=== PATIENT | female | born 1995 | race Two or more races ===

== ENCOUNTER 2024-12-17 03:19 | Emergency (ER) | payer SELFPAY ==
[~2024-12-17] VITALS: Ht 157.5 cm; Wt 128.4 kg
[2024-12-17] MEDS: ACETAMINOPHEN 325 MG TAB PO ONE (03:45)
--- NOTE | 2024-12-17 03:58 | ED.PDOC ---
History of Present Illness HPI Comments 29 y/o F, with a history of seizures - 500mg Keppra BID, presents with significant other for c/o seizure episode, today. Patient reports on waking up from her sleep, with a headache, when she had a seizure from a standing position. Patient was assisted onto the ground by significant other, who was there to witnessed the seizure then. Patient, now, endorses on headache and dry tongue. Denies any injuries, dizziness, confusion, or other associated symptoms. 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 DRAPERY OPERATOR Hx Family History Family History: Unknown Social History Smoker: Non-Smoker Alcohol: Denies ETOH Use Drugs: Denies Drug Use Lives In: Home All Other Systems: Reviewed and Negative (Comprehensive systems review obtained and negative except for what is stated in the HPI.) Physical Exam General Appearance: No Apparent Distress, Normal HEENT: Normal ENT Inspection, Pharynx Normal, TMs Normal Neck: Full Range of Motion, Non-Tender, Normal, Normal Inspection Respiratory: Chest Non-Tender, Lungs Clear, No Accessory Muscle Use, No Respiratory Distress, Normal Breath Sounds Cardiovascular: No Edema, No JVD, No Murmur, No Gallop, Normal Peripheral Pulses, Regular Rate/Rhythm Breast Exam: Deferred Gastrointestinal: No Organomegaly, Non Tender, No Pulsatile Mass, Normal Bowel Sounds, Soft Genitalia: Deferred Pelvic: Deferred Rectal: Deferred Extremities: No calf tenderness, Normal capillary refill, Normal inspection, Normal range of motion, Non-tender, No pedal edema Musculoskeletal : Apperance: Normal Neurologic: Alert, housing management officer II-XII nml as Tested, No Motor Deficits, Normal Affect, Normal Mood, No Sensory Deficits Cerebellar Function: Normal Reflexes: Normal Skin: Dry, Normal Color, Warm Lymphatic: No Adenopathy Was a procedure done? Was a procedure done?: No Differential Dx Considerations may include: seizures, pseudoseizures, viral syndrome, among others X-Ray, Labs, Meds, VS Vital Signs Date Time Temp Pulse Resp B/P (MAP) Pulse Ox O2 Delivery O2 Flow Rate FiO2 12/17/24 05:27 98.6 91 16 118/87 (97) 97 98.6 12/17/24 05:20 20 99 Nasal Cannula* 2 28 12/17/24 03:25 98.7 97 18 118/82 (94) 90 98.7 Current Medications Medications (Trade) Dose Ordered Sig/Leobardo Route Start Time Stop Time Status Last Admin Sodium Chloride 1,000 ml @ 1,000 mls/hr Q1H ONCE IV 12/17/24 03:45 12/17/24 04:44 DC 12/17/24 05:24 Levetiracetam 200 ml @ 400 mls/hr ONCE ONCE IV 12/17/24 03:45 12/17/24 04:14 DC 12/17/24 05:25 Acetaminophen (Tylenol Tablet) 650 mg ONCE ONCE PO 12/17/24 03:45 12/17/24 03:46 DC 12/17/24 03:45 Ketorolac Tromethamine (Toradol Injection) 15 mg ONCE ONCE IV 12/17/24 03:45 12/17/24 03:46 DC 12/17/24 05:23 Albuterol (Ventolin Medneb) 5 mg ONCE ONCE NEB 12/17/24 05:15 12/17/24 05:16 DC 12/17/24 05:19 Ipratropium [place] (Atrovent Medneb) 0.5 mg ONCE ONCE NEB 12/17/24 05:15 12/17/24 05:16 DC 12/17/24 05:19 Time of 1ST Reevaluation: 04:00 Reevaluation 1ST: Unchanged Patient Education/Counseling: Diagnosis, Treatment Family Education/Counseling: Diagnosis, Treatment Additional Information Previous visits: n/a The following tests were ordered, and results were reviewed by me: n/a Additional Information was gathered from interviewing the following independent historians: significant other I reviewed and agreed with the following test results read by other providers: n/a I discussed treatment and results with medical personnel and: Patient, significant other Departure 1 Departure Time of Disposition: 05:29 (Patient with a breakthrough seizure however she has now returned to baseline. We will discharge patient home with outpatient follow up) Impression: Primary Impression: Breakthrough seizure Disposition: HOME / SELF CARE / HOMELESS Condition: Stable Additional Instructions: You had a breakthrough seizure today. It is important to take your seizure medication. You should stay well rested and well hydrated. You should follow up with your regular doctor within 1 week. If your symptoms worsen or you have any other concerns then please return to the emergency room. Discharged With: Self Critical Care Note Critical Care Time?: No Stability Stability form required: No Heart Score Heart Score: Heart Score Response (Comments) Value History N/A 0 EKG N/A 0 Age N/A 0 Risk Factors N/A 0 Troponin N/A 0 Total 0 I personally scribed for MYLA JANSEN MD ([email or web address]) on 12/17/24 at 03:58. Electronically submitted by Alfred Echeverria ([email or web address]). MYLA JANSEN MD Dec 17, 2024 03:58
[2024-12-17] MEDS: IPRATROPIUM BROM 0.5 MG/2.5ML INH SOL NEB ONE (05:19)
[2024-12-17] MEDS: ALBUTEROL SULF 2.5 MG/0.5ML(0.5%) NEB SOLN NEB ONE (05:19)
[2024-12-17] MEDS: KETOROLAC TROMETH 30 MG/ML 1ML VIAL IV ONE (05:23)
[2024-12-17] MEDS: SODIUM CHLORIDE 0.9% 1,000 ML IV ONE (05:24)
[2024-12-17] MEDS: levETIRAcetam 1000 mg/100ml 200 ML IV ONE (05:25)
[2024-12-17 05:27] VITALS: BP 118/87; PULSE 91; RESP 16; TEMP 98.6; O2SAT 96
--- NOTE | 2024-12-17 05:46 | DVH ---
CHEST RADIOGRAPH Indication: sob Technique: Single frontal view of the chest was obtained COMPARISON: None FINDINGS: Lines and Tubes: None Lungs: Diffuse increased interstitial prominence Pleura: No effusion. No pneumothorax. Cardiomediastinal contours: Unremarkable Bones: Unremarkable IMPRESSION: Viral pneumonia versus pulmonary vascular congestion
== END 2024-12-17 05:50 | disposition home or self-care (01) ==
LOC: ER 03:19
DX: G40.909 Epilepsy, unspecified, not intractable, without status epilepticus (principal); Z88.5 Allergy status to narcotic agent; Z79.899 Other long term (current) drug therapy
CPT/HCPCS: 71045; 94640; 96365; 96375; 99284; J1885; J1953; J7030

== ENCOUNTER 2024-12-25 21:23 | Emergency (ER) | payer SELFPAY ==
[~2024-12-25] VITALS: Ht 160 cm; Wt 125.5 kg
[2024-12-25 22:20] VITALS: TEMP 98.5
[2024-12-25 23:34] LABS: Urine Bacteria FEW /hpf (None Seen); Urine Blood Negative /uL (Negative); Urine Clarity Clear (Clear); Urine Color Colorless (Yellow); Urine Protein, UAD Negative (Negative); Urine Specific Gravity 1.005 (1.001-1.035); Urine Squamous Epithelial Cell FEW /hpf (<5); Urine Urobilinogen Normal (Negative); Urine WBC < 1 /HPF (0-5); Urine pH 6.5 (5.0-9.0)
[2024-12-25 23:51] LABS: Basophils # (auto) 0 10 ^3/uL (0-0.2); Basophils % (auto) 0.1 % (0.0-2.0); Eosinophils # (auto) 0 10 ^3/uL (0-0.8); Hematocrit 38.7 % (36.0-46.0); Hemoglobin 12.5 g/dL (12.2-16.2); Lymphocytes # (auto) 1.3 10 ^3/uL (0.4-5.4); Lymphocytes % (auto) 7.2 % (10.0-50.0); Mean Corpuscular Hemoglobin 25.5 pg (28.0-32.0); Mean Corpuscular Hgb Conc. 32.4 g/dL (32.0-36.0); Mean Corpuscular Volume 78.6 fL (80.0-100.0); Monocytes # (auto) 0.7 10 ^3/uL (0-1.3); Monocytes % (auto) 3.8 % (0.0-12.0); Neutrophils # (auto) 16.7 10 ^3/uL (1.6-8.6); Neutrophils % (auto) 88.9 % (37.0-80.0); Platelet Count (auto) 393 10^3/uL (140-450); Red Blood Cells 4.93 10^6/uL (4.0-5.20); Red Cell Distribution Width 17.3 % (11.8-14.3); White Blood Cell 18.8 10^3/uL (4.4-10.8)
[2024-12-25] MEDS: levETIRAcetam 1000 mg/100ml 100 ML IV ONE (23:59)
[2024-12-26 00:15] LABS: Alanine Aminotransferase 18 U/L (7-40); Albumin 4.7 g/dL (3.2-4.8); Alkaline Phosphatase 70 U/L (46-116); Anion Gap 10 (5-15); BUN/Creatinine Ratio 7.5 (10.0-20.0); Calcium 9.1 mg/dL (8.7-10.4); Carbon Dioxide 21 mmol/L (20-31); Lipase 33 U/L (12-53); Sodium 140 mmol/L (136-145); Total Protein 7.1 g/dL (5.7-8.2)
[2024-12-26 00:16] LABS: Bilirubin, Total 0.4 mg/dL (0.2-1.0)
[2024-12-26 00:18] LABS: Aspartate Aminotransferase 10 U/L (13-40); Blood Urea Nitrogen 6 mg/dL (9-23); Chloride 109 mmol/L (98-107); Glucose 127 mg/dL (74-106)
[2024-12-26] MEDS: PROCHLORPERAZINE EDISYLATE 5 MG/ML 2ML VIAL IV ONE (00:40)
--- NOTE | 2024-12-26 00:55 | ED.PDOC ---
History of Present Illness HPI Comments 29-year-old female complaining of nausea and vomiting which started at 5:30 a.m.. States she went to [facility] initially, states she was CT scans and lab works done told that the CT was negative but states they did nothing else for her so she was last. States she was concerned because she was not been able to keep down her Keppra for seizures. States she was seizure last week so she needs to keep taking it daily. Takes 1000 mg twice a day. 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 INFRASTRUCTURE ARCHITECT Hx Family History Family History: Unknown Social History Smoker: Non-Smoker Alcohol: Denies ETOH Use Drugs: Denies Drug Use Lives In: Home Constitutional: denies: chills, diaphoresis, fatigue, fever, malaise, sweats, weakness, others EENTM: denies: blurred vision, double vision, ear bleeding, ear discharge, ear drainage, ear pain, ear ringing, eye pain, eye redness, hearing loss, mouth pain, mouth swelling, nasal discharge, nose bleeding, nose congestion, nose pain, photophobia, tearing, throat pain, throat swelling, voice changes, others Respiratory: denies: cough, hemoptysis, orthopnea, SOB at rest, shortness of breath, SOB with excertion, stridor, wheezing, others Cardiovascular: denies: chest pain, dizzy spells, diaphoresis, Dyspnea on exertion, edema, irregular heart beat, left arm pain, lightheadedness, palpitations, PND, syncope, others Gastrointestinal: reports: nausea, vomiting; denies: abdomen distended, abdominal pain, blood streaked bowels, constipated, diarrhea, dysphagia, difficulty swallowing, hematemesis, melena, poor appetite, poor fluid intake, rectal bleeding, rectal pain, others Genitourinary: denies: abnormal vagina bleeding, burning, dyspareunia, dysuria, flank pain, frequency, hematuria, incontinence, pain, , vagina discharge, urgency, others Neurological: denies: dizziness, fainting, headache, left sided numbness, left sided weakness, numbness, paresthesia, pre-existing deficit, right sided numbness, right sided weakness, seizure, speech problems, tingling, tremors, weakness, others Musculoskeletal: denies: back pain, gout, joint pain, joint swelling, muscle pain, muscle stiffness, neck pain, others Integumetry: denies: bruises, change in color, change in hair/nails, dryness, laceration, lesions, lumps, rash, wounds, others Allergic/Immunocompromised: denies: Difficulty Healing, Frequent Infections, Hives, Itching, others Hematologic/Lymphatic: denies: anemia, blood clots, easy bleeding, easy bru ising, swollen glands, others Physical Exam General Appearance: No Apparent Distress, Normal HEENT: Normal ENT Inspection, Pharynx Normal, TMs Normal Neck: Full Range of Motion, Non-Tender, Normal, Normal Inspection Respiratory: Chest Non-Tender, Lungs Clear, No Accessory Muscle Use, No Respiratory Distress, Normal Breath Sounds Cardiovascular: No Edema, No JVD, No Murmur, No Gallop, Normal Peripheral Pulses, Regular Rate/Rhythm Breast Exam: Deferred Gastrointestinal: No Organomegaly, Non Tender, No Pulsatile Mass, Normal Bowel Sounds, Soft Genitalia: Deferred Pelvic: Deferred Rectal: Deferred Extremities: No calf tenderness, Normal capillary refill, Normal inspection, Normal range of motion, Non-tender, No pedal edema Musculoskeletal : Apperance: Normal Neurologic: Alert, plug paster II-XII nml as Tested, No Motor Deficits, Normal Affect, Normal Mood, No Sensory Deficits Cerebellar Function: Normal Reflexes: Normal Skin: Dry, Normal Color, Warm Lymphatic: No Adenopathy Was a procedure done? Was a procedure done?: No Differential Dx Considerations may include: Gastroenteritis, acute nausea, X-Ray, Labs, Meds, VS Vital Signs Date Time Temp Pulse Resp B/P (MAP) Pulse Ox O2 Delivery O2 Flow Rate FiO2 12/25/24 22:20 98.5 98 17 123/58 (79) 98 98.5 Lab Test 12/25/24 23:35 12/25/24 22:00 Range/Units White Blood Count 18.8 H 4.4-10.8 10^3/uL Red Blood Count 4.93 4.0-5.20 10^6/uL Hemoglobin 12.5 12.2-16.2 g/dL Hematocrit 38.7 36.0-46.0 % Mean Corpuscular Volume 78.6 L 80.0-100.0 fL Mean Corpuscular Hemoglobin 25.5 L 28.0-32.0 pg Mean Corpuscular Hemoglobin Concent 32.4 32.0-36.0 g/dL Red Cell Distribution Width 17.3 H 11.8-14.3 % Platelet Count 393 140-450 10^3/uL Mean Platelet Volume 8.1 6.9-10.8 fL Neutrophils (%) (Auto) 88.9 H 37.0-80.0 % Lymphocytes (%) (Auto) 7.2 L 10.0-50.0 % Monocytes (%) (Auto) 3.8 0.0-12.0 % Eosinophils (%) (Auto) 0.0 0.0-7.0 % Basophils (%) (Auto) 0.1 0.0-2.0 % Neutrophils # (Auto) 16.7 H 1.6-8.6 10 ^3/uL Lymphocytes # (Auto) 1.3 0.4-5.4 10 ^3/uL Monocytes # (Auto) 0.7 0-1.3 10 ^3/uL Eosinophils # (Auto) 0 0-0.8 10 ^3/uL Basophils # (Auto) 0 0-0.2 10 ^3/uL Nucleated Red Blood Cells 0.0 % Sodium Level 140 136-145 mmol/L Potassium Level 4.0 3.5-5.1 mmol/L Chloride Level 109 H 98-107 mmol/L Carbon Dioxide Level 21 20-31 mmol/L Anion Gap 10 5-15 Blood Urea Nitrogen 6 L 9-23 mg/dL Creatinine 0.80 0.550-1.02 mg/dL Glomerular Filtration Rate Calc 102 >90 mL/min BUN/Creatinine Ratio 7.5 L 10.0-20.0 Serum Glucose 127 H 74-106 mg/dL Calcium Level 9.1 8.7-10.4 mg/dL Total Bilirubin 0.4 0.2-1.0 mg/dL Aspartate Amino Transferase (AST) 10 L 13-40 U/L Alanine Aminotransferase (ALT) 18 7-40 U/L Alkaline Phosphatase 70 46-116 U/L Total Protein 7.1 5.7-8.2 g/dL Albumin 4.7 3.2-4.8 g/dL Lipase 33 12-53 U/L Urine Color Colorless Yellow Urine Clarity Clear Clear Urine pH 6.5 5.0-9.0 Urine Specific [place] 1.005 1.001-1.035 Urine Protein Negative Negative Urine Ketones Negative Negative Urine Blood Negative Negative /uL Urine Nitrite Negative Negative Urine Bilirubin Negative Negative Urine Urobilinogen Normal Negative mg/dL Urine Leukocyte Esterase Negative Negative /uL Urine RBC 1 0 - 4 /hpf Urine Microscopic WBC < 1 0-5 /HPF Urine Squamous Epithelial Cells Few <5 /hpf Urine Bacteria Few H None Seen /hpf Urine Glucose Normal Normal mg/dL Current Medications Medications (Trade) Dose Ordered Sig/Leobardo Route Start Time Stop Time Status Last Admin Prochlorperazine Edisylate (Compazine Inj) 5 mg ONCE ONCE IV 12/25/24 23:45 12/25/24 23:46 DC 12/26/24 00:40 Levetiracetam 100 ml @ 400 mls/hr ONCE ONCE IV 12/25/24 23:45 12/25/24 23:59 DC 12/25/24 23:59 X-Ray, Labs, Meds, VS Comment Imaging: X-rays and CT scans were reviewed and interpreted by this provider, imaging shows no fractures and no pathological disease. Pending radiology review. Laboratory: Labs reviewed and interpreted by this provider. Elevated white count and bacteria in urine consistent with urinary tract infection Patient has prior medical visits reviewed. Med reconciliation performed Vital signs reviewed Time of 1ST Reevaluation: 01:06 Reevaluation 1ST: Improved (Patient was states improvement after Compazine.) Patient Education/Counseling: Diagnosis, Treatment, Need For Follow Up (Follow up in the emergency department in the next 24-48 hours if symptoms worsen. It was advised to follow up with your primary care doctor in the next 3-4 days for further evaluation.) Family Education/Counseling: Diagnosis Departure 1 Departure Time of Disposition: 01:04 Impression: Primary Impression: Acute vomiting Additional Impression: UTI (urinary tract infection) Qualified Codes: N30.00 - Acute cystitis without hematuria Disposition: 01 HOME / SELF CARE / HOMELESS Condition: Fair e-Prescriptions Nitrofurantoin Monohydrate Mac (Macrobid) 100 Mg Cap 100 MG PO BID for 7 Days, #14 CAP Prov: CLIFTON CARTER 5/8/25 Prochlorperazine Maleate (Compazine) 10 Mg Tb 1 TAB PO Q6HR PRN, #30 TAB 3 Refills Prov: CLIFTON CARTER 12/26/24 Discharged With: Self Critical Care Note Critical Care Time?: No Stability Stability form required: No Heart Score Heart Score: Heart Score Response (Comments) Value History N/A 0 EKG N/A 0 Age N/A 0 Risk Factors N/A 0 Troponin N/A 0 Total 0 CLIFTON CARTER December 26, 2024 00:55
[2024-12-26] MEDS ORDERED: PROC10TA6 PO (01:05)
[2024-12-26] MEDS ORDERED: NITR-87 PO (01:05)
[2024-12-26 01:10] VITALS: BP 130/81; PULSE 89; RESP 18; O2SAT 100
== END 2024-12-26 01:23 | disposition home or self-care (01) ==
LOC: ER 21:35
DX: N39.0 Urinary tract infection, site not specified (principal); R11.2 Nausea with vomiting, unspecified; Z86.69 Personal history of other diseases of the nervous system and sense organs; Z88.5 Allergy status to narcotic agent
CPT/HCPCS: 36415; 80053; 81001; 83690; 85025; 96365; 96375; 99284; J0780; J1953

== ENCOUNTER 2025-01-17 07:58 | Inpatient (IN) | payer SELFPAY ==
[~2025-01-17] VITALS: Ht 160 cm; Wt 126.9 kg
[~2025-01-17 07:58] MED LIST: NITR-87 PO; PROC10TA6 PO
--- NOTE | 2025-01-17 08:04 | ED.PDOC ---
GI ASSESSMENT HPI Comments 29 year old female presents to the ED with a chief complaint of abdominal pain onset today (01/17/25) around 04:00. Patient states she woke up this morning experiencing abdominal pain as well as nausea/vomiting, diarrhea. Unknown LMP, currently IUD in place. PMHx seizure. Denies chest pain, shortness of breath, fever, chills, hematemesis, dysuria, hematuria, blood in stool, headache, dizziness. No other symptoms or modifying factors present at this time. Time Seen by MD: 08:20 Reviewed Notes: Medications, Allergies Allergies: Coded Allergies: Codeine (Verified Allergy, Unknown, 12/17/24) Home Meds Active Scripts Nitrofurantoin Monohydrate Mac (Macrobid) 100 Mg Cap, 100 MG PO BID for 7 Days, #14 CAP Prov:CLIFTON CARTER 12/26/24 Prochlorperazine Maleate (Compazine) 10 Mg Tb, 1 TAB PO Q6HR PRN, #30 TAB 3 Refills Prov:CLIFTON CARTER 12/26/24 Information Source: Patient, Spouse Mode of Arrival: Ambulatory Timing: Hours Duration: Since onset Prehospital treatment: None Quality: Sharp Severity: Moderate Recent: None Recent Hx of: None Pain Location: Diffuse Modifying Factors: Nothing Associated sign and symptoms: Nausea, Vomiting, Diarrhea, Abdominal Pain Past Medical History PAST MEDICAL HISTORY: Seizures Surgical History: Denies all surgeries 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 VISITOR Hx Family History Family History: Unknown Social History Smoker: Non-Smoker Alcohol: Denies ETOH Use Drugs: Marijuana Lives In: Home Constitutional: denies: chills, diaphoresis, fatigue, fever, malaise, sweats, weakness, others EENTM: denies: blurred vision, double vision, ear bleeding, ear discharge, ear drainage, ear pain, ear ringing, eye pain, eye redness, hearing loss, mouth pain, mouth swelling, nasal discharge, nose bleeding, nose congestion, nose pain, photophobia, tearing, throat pain, throat swelling, voice changes, others Respiratory: denies: cough, hemoptysis, orthopnea, SOB at rest, shortness of breath, SOB with excertion, stridor, wheezing, others Cardiovascular: denies: chest pain, dizzy spells, diaphoresis, Dyspnea on exertion, edema, irregular heart beat, left arm pain, lightheadedness, palpitations, PND, syncope, others Gastrointestinal: reports: abdominal pain, diarrhea, nausea, vomiting; denies: abdomen distended, blood streaked bowels, constipated, dysphagia, difficulty swallowing, hematemesis, melena, poor appetite, poor fluid intake, rectal bleeding, rectal pain, others Genitourinary: denies: abnormal vagina bleeding, burning, dyspareunia, dysuria, flank pain, frequency, hematuria, incontinence, pain, , vagina discharge, urgency, others Neurological: denies: dizziness, fainting, headache, left sided numbness, left sided weakness, numbness, paresthesia, pre-existing deficit, right sided numbness, right sided weakness, seizure, speech problems, tingling, tremors, weakness, others Musculoskeletal: denies: back pain, gout, joint pain, joint swelling, muscle pain, muscle stiffness, neck pain, others Integumetry: denies: bruises, change in color, change in hair/nails, dryness, laceration, lesions, lumps, rash, wounds, others Allergic/Immunocompromised: denies: Difficulty Healing, Frequent Infections, Hives, Itching, others Hematologic/Lymphatic: denies: anemia, blood clots, easy bleeding, easy bruising, swollen glands, others Endocrine: denies: excessive hunger, excessive sweating, excessive thirst, excessive urination, flushing, intolerance to cold, intolerance to heat, unexplained weight gain, unexplained weight loss, others Psychiatric: denies: anxiety, bipolar disorder, depression, hopeless, panic disorder, schizophrenia, sleepless, suicidal, others All Other Systems: Reviewed and Negative Physical Exam General Appearance: No Apparent Distress, Normal HEENT: Normal ENT Inspection, Pharynx Normal, TMs Normal Neck: Full Range of Motion, Non-Tender, Normal, Normal Inspection Respiratory: Chest Non-Tender, Lungs Clear, No Accessory Muscle Use, No Respiratory Distress, Normal Breath Sounds Cardiovascular: No Edema, No JVD, No Murmur, No Gallop, Normal Peripheral Pulses, Regular Rate/Rhythm Breast Exam: Deferred Gastrointestinal: No Organomegaly, Non Tender, No Pulsatile Mass, Normal Bowel Sounds, Soft, Other (patient holding emesis bag with no active emesis ) Genitalia: Deferred Pelvic: Deferred Rectal: Deferred Extremities: No calf tenderness, Normal capillary refill, Normal inspection, Normal range of motion, Non-tender, No pedal edema Musculoskeletal : Apperance: Normal Neurologic: Alert, pipe insulator helper II-XII nml as Tested, No Motor Deficits, Normal Affect, Normal Mood, No Sensory Deficits Cerebellar Function: Normal Reflexes: Normal Skin: Dry, Normal Color, Warm Lymphatic: No Adenopathy Was a procedure done? Was a procedure done?: No GI differential Dx Differential Diagnosis: Appendicitis, Complete , Incomplete , Inevitable , Missed , Threatened , Bowel Obstruction, Constipation, Diverticular disease, Ectopic , Gastritis/PUD, Gastroenteritis, Hernia, Hepatitis, Inflammatory BD, UTI, Dehydration, Electrol yte Imbalance, Food Poisoning, , Bacterial, Parasitic, Viral, Hypovolemia, Impaction, Renal Failure, Stress Ulcer X-Ray, Labs, Meds, VS Vital Signs Date Time Temp Pulse Resp B/P (MAP) Pulse Ox O2 Delivery O2 Flow Rate FiO2 01/17/25 13:11 Room Air* 0 21 01/17/25 09:46 98.7 64 20 161/95 (117) 96 98.7 01/17/25 08:07 97.0 68 20 131/84 (100) 100 97.0 Lab Test 01/17/25 12:16 01/17/25 08:45 Range/Units Urine Test Negative Negative Urine Opiates Screen Neg NEGATIVE Urine Fentanyl Screen Neg NEGATIVE Urine Barbiturates Screen Neg NEGATIVE Urine Phencyclidine Screen Neg NEGATIVE Urine Amphetamines Screen Neg NEGATIVE Urine Benzodiazepines Screen Neg NEGATIVE Urine Cocaine Screen Neg NEGATIVE Urine Cannabinoids Screen Pos NEGATIVE White Blood Count 14.7 H 4.4-10.8 10^3/uL Red Blood Count 4.94 4.0-5.20 10^6/uL Hemoglobin 12.8 12.2-16.2 g/dL Hematocrit 39.0 36.0-46.0 % Mean Corpuscular Volume 79.0 L 80.0-100.0 fL Mean Corpuscular Hemoglobin 25.9 L 28.0-32.0 pg Mean Corpuscular Hemoglobin Concent 32.8 32.0-36.0 g/dL Red Cell Distribution Width 16.9 H 11.8-14.3 % Platelet Count 369 140-450 10^3/uL Mean Platelet Volume 8.0 6.9-10.8 fL Neutrophils (%) (Auto) 82.4 H 37.0-80.0 % Lymphocytes (%) (Auto) 14.2 10.0-50.0 % Monocytes (%) (Auto) 2.7 0.0-12.0 % Eosinophils (%) (Auto) 0.5 0.0-7.0 % Basophils (%) (Auto) 0.2 0.0-2.0 % Neutrophils # (Auto) 12.1 H 1.6-8.6 10 ^3/uL Lymphocytes # (Auto) 2.1 0.4-5.4 10 ^3/uL Monocytes # (Auto) 0.4 0-1.3 10 ^3/uL Eosinophils # (Auto) 0.1 0-0.8 10 ^3/uL Basophils # (Auto) 0 0-0.2 10 ^3/uL Nucleated Red Blood Cells 0.2 % Sodium Level 141 136-145 mmol/L Potassium Level 3.7 3.5-5.1 mmol/L Chloride Level 110 H 98-107 mmol/L Carbon Dioxide Level 22 20-31 mmol/L Anion Gap 9 5-15 Blood Urea Nitrogen 9 9-23 mg/dL Creatinine 0.85 0.550-1.02 mg/dL Glomerular Filtration Rate Calc 95 >90 mL/min BUN/Creatinine Ratio 10.6 10.0-20.0 Serum Glucose 122 H 74-106 mg/dL Calcium Level 10.1 8.7-10.4 mg/dL Total Bilirubin 0.3 0.2-1.0 mg/dL Aspartate Amino Transferase (AST) 12 L 13-40 U/L Alanine Aminotransferase (ALT) 14 7-40 U/L Alkaline Phosphatase 81 46-116 U/L Total Protein 7.4 5.7-8.2 g/dL Albumin 4.7 3.2-4.8 g/dL Plasma/Serum Blood Alcohol < 3.0 <10 mg/dL Current Medications Medications (Trade) Dose Ordered Sig/Leobardo Route Start Time Stop Time Status Last Admin Sodium Chloride 2,000 ml @ 1,000 mls/hr Q2H ONCE IV 01/17/25 08:45 01/17/25 10:46 DC 01/17/25 10:43 Haloperidol Lactate (Haldol) 5 mg ONCE ONCE IM 01/17/25 08:45 01/17/25 08:47 DC 01/17/25 10:00 Diphenhydramine HCl (Benadryl Injection) 50 mg ONCE ONCE IM 01/17/25 08:45 01/17/25 08:47 DC 01/17/25 10:01 Ondansetron HCl (Zofran) 4 mg ONCE ONCE IV 01/17/25 13:45 01/17/25 13:46 DC 01/17/25 13:44 Time of 1ST Reevaluation: 08:50 Reevaluation 1ST: Unchanged Time of 2ND Reevaluation: 15:00 Reevaluation 2ND: Unchanged Patient Education/Counseling: Diagnosis, Treatment, Prognosis, Need For Follow Up Family Education/Counseling: Diagnosis, Treatment, Prognosis, Need For Follow Up Additional Information Previous visits reviewed: 12/25/24 due to N/V, 12/17/24 due to seizure The following tests were ordered, and results were reviewed by me: CBC, CMP, DRUG SCREEN, URINE ETHANOL, PREGUA Additional Information was gathered from interviewing the following independent historians: I discussed treatment and results with medical personnel and: patient, Comprehensive systems review obtained and negative except for what is stated in the HPI. pt remains symptomatic, but only with dry heaving, without actual vomiting. pt likely has CHS, but the CT also shows colitis. she will be admitted for these conditions pt also has leukocytosis, but this is likely due to demargination. she is not septic. Departure 1 Departure Time of Disposition: 15:02 Impression: Primary Impression: Intractable nausea Additional Impressions: Cannabinoid hyperemesis syndrome Colitis Leukocytosis Disposition: ADMITTED INPATIENT Condition: Serious Discharged With: Self Critical Care Note Critical Care Time?: No Stability Stability form required: No I personally scribed for [place] NEELY MD ([email or web address]) on 01/17/25 at 08:04. Electronically submitted by Mariia Rider ([email or web address]). I personally scribed for [place] NEELY MD ([email or web address]) on 01/17/25 at 08:26. Electronically submitted by Mariia Rider ([email or web address]). I personally scribed for [place] NEELY MD ([email or web address]) on 01/17/25 at 08:37. Electronically submitted by Mariia Rider ([email or web address]). [place] NEELY MD January 17, 2025 08:04
[2025-01-17 09:02] LABS: Mean Corpuscular Hemoglobin 25.9 pg (28.0-32.0); Neutrophils # (auto) 12.1 10 ^3/uL (1.6-8.6); White Blood Cell 14.7 10^3/uL (4.4-10.8)
[2025-01-17 09:04] LABS: Basophils # (auto) 0 10 ^3/uL (0-0.2); Basophils % (auto) 0.2 % (0.0-2.0); Eosinophils # (auto) 0.1 10 ^3/uL (0-0.8); Eosinophils % (auto) 0.5 % (0.0-7.0); Hemoglobin 12.8 g/dL (12.2-16.2); Lymphocytes # (auto) 2.1 10 ^3/uL (0.4-5.4); Lymphocytes % (auto) 14.2 % (10.0-50.0); Mean Corpuscular Hgb Conc. 32.8 g/dL (32.0-36.0); Monocytes # (auto) 0.4 10 ^3/uL (0-1.3); Monocytes % (auto) 2.7 % (0.0-12.0); Neutrophils % (auto) 82.4 % (37.0-80.0); Nucleated Red Blood Cells % 0.2 %; Platelet Count (auto) 369 10^3/uL (140-450); Red Blood Cells 4.94 10^6/uL (4.0-5.20); Red Cell Distribution Width 16.9 % (11.8-14.3)
[2025-01-17 09:19] LABS: Alanine Aminotransferase 14 U/L (7-40); Albumin 4.7 g/dL (3.2-4.8); Alkaline Phosphatase 81 U/L (46-116); Anion Gap 9 (5-15); Aspartate Aminotransferase 12 U/L (13-40); BUN/Creatinine Ratio 10.6 (10.0-20.0); Blood Alcohol < 3.0 mg/dL (<10); Blood Urea Nitrogen 9 mg/dL (9-23); Calcium 10.1 mg/dL (8.7-10.4); Carbon Dioxide 22 mmol/L (20-31); Chloride 110 mmol/L (98-107); Glucose 122 mg/dL (74-106); Potassium 3.7 mmol/L (3.5-5.1); Sodium 141 mmol/L (136-145); Total Protein 7.4 g/dL (5.7-8.2)
[2025-01-17 09:20] LABS: Bilirubin, Total 0.3 mg/dL (0.2-1.0)
[2025-01-17] MEDS: HALOPERIDOL LACTATE 5 MG/ML INJ VIAL IM ONE (10:00)
[2025-01-17] MEDS: diphenhdrAMINE HCL 50 MG/1 ML VL IM ONE (10:01)
[2025-01-17] MEDS: SODIUM CHLORIDE 0.9% 2,000 ML IV ONE (10:43)
[2025-01-17 12:42] LABS: Amphetamine Screen, Urine Neg (NEGATIVE); Barbiturate Scree,Urine Neg (NEGATIVE); Benzodiazephine Screen, Urine Neg (NEGATIVE); Cannabinoid Screen, Urine Pos (NEGATIVE); Cocaine Screen, Urine Neg (NEGATIVE); Opiate Scree,Urine Neg (NEGATIVE); Phencyclidine Screen, Urine Neg (NEGATIVE)
--- NOTE | 2025-01-17 13:37 | DVH ---
Exam: CT CT AB PEL WO CON-NO ORAL OR IV History: abdominal pain, nausea, vomiting Comparison Study: None Technique: Multidetector spiral CT of the abdomen was performed from lung bases to pubic symphysis. I maging was performed without IV contrast. Axial, coronal and sagittal multiplanar reformats were obta ined from the axial data set by the technologist. Radiation Dose : 1. Abdomen/Pelvis: CTDIvol 27.88 mGy, DLP 1546.73 mGy*cm. Findings: Evaluation of solid organs is limited due to lack of intravenous contrast use. Lung Bases: No acute or significant lung base finding. Normal heart size. No pleural or pericardial effusion. Liver: Hepatomegaly. Mildly nodular hepatic contours may represent early changes of cirrhosis. Clini josemanuel correlation advised. Gallbladder and Biliary Tree: Unremarkable Spleen: Unremarkable Pancreas: The pancreas is grossly normal in appearance. Adrenal Glands: Unremarkable Kidneys: Kidneys are grossly normal without calculi or hydronephrosis. Bladder: Grossly unremarkable for degree of distention. Bowel: The stomach is grossly normal in appearance. Moderate diffuse colonic bowel wall thickening. N ormal appendix is visualized in the right lower quadrant without findings of appendicitis. Ascites: Absent Lymphadenopathy: No mesenteric, retroperitoneal or periportal lymphadenopathy. Abdominal Wall and Mesentery: Unremarkable. Vasculature: The visualized abdominal aorta is normal in size and caliber. Evaluation of abdominal a nd pelvic vessels is limited due to lack of intravenous contrast. Pelvic Organs: Intrauterine device in-situ. Musculoskeletal: No aggressive focal bony lesions, acute fractures or dislocation. IMPRESSION: Moderate diffuse colonic bowel wall thickening; possibly colitis.
[2025-01-17] MEDS: ONDANSETRON HCL 4 MG/2 ML VIAL IV ONE (13:44)
[2025-01-17] MEDS: PROCHLORPERAZINE EDISYLATE 5 MG/ML 2ML VIAL IV ONE (15:16)
[2025-01-17] MEDS: metroNIDAZOLE 500MG/100ML 100 ML IV ONE (15:16)
[2025-01-17] MEDS ORDERED: LEVE500T3 PO (16:11)
[2025-01-17] MEDS ORDERED: ONDANSETRON HCL 4 MG/2 ML VIAL IV PRN (16:15)
[2025-01-17] MEDS ORDERED: ACETAMINOPHEN 325 MG TAB PO PRN (16:15)
[2025-01-17] MEDS ORDERED: NITROGLYCERIN 0.4 MG SL TAB SL PRN (16:15)
--- NOTE | 2025-01-17 16:23 | DVHHP2 ---
History of Present Illness Reason for Visit: Abdominal pain History of Present Illness Loulou Zheng is a 29-year-old female with past medical history of seizures and right hand cyst removal who presents to the ED with abdominal pain with nausea and vomiting x1 day. Patient reports that her pain is better with the Compazine that was given in ED and she was vomiting clear contents as well as food contents. Patient does state that she smokes marijuana. She also states that she had an MRI brain done 2 days ago and waiting to see her neurologist next month for a follow-up. She also states that she is supposed to have a sleep study done in February. Also by her GI doctor was supposed to get an EGD next month. She states that she has been having this nausea and vomiting going on for some time which is why she has been seeing different specialists. She also states that she has been living here for about 3 years and was from [place] in [place]. She denies any chest pain, shortness of breath, fever, chills, lightheadedness, weakness, dizziness, recent sick contacts, recent travels, recent trauma or injury, or urinary symptoms. Patient also reports that his she has not IUD and got it placed 2 years ago. Patient states that she is hungry she wants to eat. 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 Past Surgical History: Other (Right hand cyst removal) Family History: DM, Other (Dad with diabetes and alcohol abuse now ) Smoke: No ALCOHOL: none Drugs: Marijuana Lives: with Family Domestic Violence: Neg Review of Systems Gastrointestinal: Nausea, Vomiting, Abdominal Pain Allergies: Coded Allergies: Codeine (Verified Allergy, Unknown, 12/17/24) Medications Current Medications Medications Dose Ordered Sig/Leobardo Route Start Time Stop Time Status Last Admin Dose Admin Ondansetron HCl 4 mg Q4HP PRN IV 01/17/25 16:15 UNV Acetaminophen 650 mg Q6HP PRN PO 01/17/25 16:15 UNV Nitroglycerin 0.4 mg Q5MINP PRN SL 01/17/25 16:15 UNV Levetiracetam 1,000 mg BID PO 01/17/25 22:00 UNV Pantoprazole Sodium 40 mg DAILY IV 01/18/25 10:00 UNV Exam Vital Signs Vital Signs Date Time Temp Pulse Resp B/P (MAP) Pulse Ox O2 Delivery O2 Flow Rate FiO2 01/17/25 15:42 98.4 75 22 116/93 (101) 95 98.4 01/17/25 13:11 Room Air* 0 21 General Appearance: Alert, Oriented X3, Cooperative, No acute distress HEENT: Atraumatic, PERRLA, EOMI, Mucous membr. moist/pink Respiratory: Clear to auscultation, Normal air movement Cardiovascular: Normal S1, Normal S2, No murmurs Abdominal: Soft Extremities: Normal pulses Skin: No significant lesion Neuro: Normal speech, Strength at 5/5 X4 ext, Normal tone, Sensation intact Psych/Mental Status: Mental status NL, Mood NL Labs/Xrays Labs Test 01/17/25 12:16 01/17/25 08:45 Range/Units Urine Test Negative Negative Urine Opiates Screen Neg NEGATIVE Urine Fentanyl Screen Neg NEGATIVE Urine Barbiturates Screen Neg NEGATIVE Urine Phencyclidine Screen Neg NEGATIVE Urine Amphetamines Screen Neg NEGATIVE Urine Benzodiazepines Screen Neg NEGATIVE Urine Cocaine Screen Neg NEGATIVE Urine Cannabinoids Screen Pos NEGATIVE White Blood Count 14.7 H 4.4-10.8 10^3/uL Red Blood Count 4.94 4.0-5.20 10^6/uL Hemoglobin 12.8 12.2-16.2 g/dL Hematocrit 39.0 36.0-46.0 % Mean Corpuscular Volume 79.0 L 80.0-100.0 fL Mean Corpuscular Hemoglobin 25.9 L 28.0-32.0 pg Mean Corpuscular Hemoglobin Concent 32.8 32.0-36.0 g/dL Red Cell Distribution Width 16.9 H 11.8-14.3 % Platelet Count 369 140-450 10^3/uL Mean Platelet Volume 8.0 6.9-10.8 fL Neutrophils (%) (Auto) 82.4 H 37.0-80.0 % Lymphocytes (%) (Auto) 14.2 10.0-50.0 % Monocytes (%) (Auto) 2.7 0.0-12.0 % Eosinophils (%) (Auto) 0.5 0.0-7.0 % Basophils (%) (Auto) 0.2 0.0-2.0 % Neutrophils # (Auto) 12.1 H 1.6-8.6 10 ^3/uL Lymphocytes # (Auto) 2.1 0.4-5.4 10 ^3/uL Monocytes # (Auto) 0.4 0-1.3 10 ^3/uL Eosinophils # (Auto) 0.1 0-0.8 10 ^3/uL Basophils # (Auto) 0 0-0.2 10 ^3/uL Nucleated Red Blood Cells 0.2 % Sodium Level 141 136-145 mmol/L Potassium Level 3.7 3.5-5.1 mmol/L Chloride Level 110 H 98-107 mmol/L Carbon Dioxide Level 22 20-31 mmol/L Anion Gap 9 5-15 Blood Urea Nitrogen 9 9-23 mg/dL Creatinine 0.85 0.550-1.02 mg/dL Glomerular Filtration Rate Calc 95 >90 mL/min BUN/Creatinine Ratio 10.6 10.0-20.0 Serum Glucose 122 H 74-106 mg/dL Calcium Level 10.1 8.7-10.4 mg/dL Total Bilirubin 0.3 0.2-1.0 mg/dL Aspartate Amino Transferase (AST) 12 L 13-40 U/L Alanine Aminotransferase (ALT) 14 7-40 U/L Alkaline Phosphatase 81 46-116 U/L Total Protein 7.4 5.7-8.2 g/dL Albumin 4.7 3.2-4.8 g/dL Plasma/Serum Blood Alcohol < 3.0 <10 mg/dL Exam: CT CT AB PEL WO CON-NO ORAL OR IV History: abdominal pain, nausea, vomiting Comparison Study: None Technique: Multidetector spiral CT of the abdomen was performed from lung bases to pubic symphysis. Imaging was performed without IV contrast. Axial, coronal and sagittal multiplanar reformats were obtained from the axial data set by the technologist. Radiation Dose : 1. Abdomen/Pelvis: CTDIvol 27.88 mGy, DLP 1546.73 mGy*cm. Findings: Evaluation of solid organs is limited due to lack of intravenous contrast use. Lung Bases: No acute or significant lung base finding. Normal heart size. No pleural or pericardial effusion. Liver: Hepatomegaly. Mildly nodular hepatic contours may represent early changes of cirrhosis. Clinical correlation advised. Gallbladder and Biliary Tree: Unremarkable Spleen: Unremarkable Pancreas: The pancreas is grossly normal in appearance. Adrenal Glands: Unremarkable Kidneys: Kidneys are grossly normal without calculi or hydronephrosis. Bladder: Grossly unremarkable for degree of distention. Bowel: The stomach is grossly normal in appearance. Moderate diffuse colonic bowel wall thickening. Normal appendix is visualized in the right lower quadrant without findings of appendicitis. Ascites: Absent Lymphadenopathy: No mesenteric, retroperitoneal or periportal lymphadenopathy. Abdominal Wall and Mesentery: Unremarkable. Vasculature: The visualized abdominal aorta is normal in size and caliber. Evaluation of abdominal and pelvic vessels is limited due to lack of intravenous contrast. Pelvic Organs: Intrauterine device in-situ. Musculoskeletal: No aggressive focal bony lesions, acute fractures or dislocation. IMPRESSION: Moderate diffuse colonic bowel wall thickening; possibly colitis. Assessment/Plan Assessment/Plan Assessment Intractable abdominal pain with nausea and vomiting likely due to colitis Leukocytosis likely due to colitis Marijuana use Morbid obesity History of seizures History of right hand cyst removal Plan Admit to med surge Antiemetics Pain management IV antibiotics-Zosyn +Flagyl Diet Home medications reconciled DVT prophylaxis-not indicated patient ambulating PUD prophylaxis-PPIs Discussed plan of care with patient and nurse Counseled patient on cessation of marijuana use Counseled patient on lifestyle modifications, diet, and exercise Plan discussed with: Patient My Orders Orders - DARIEL LITTLEJOHN CHILD CARE LEAD TEACHER Procedure Category Date Status Time Urinalysis LAB 01/17/25 Logged 15:51 Admit ADMIT 01/17/25 Transmitted 16:06 Allergies ANDREI 01/17/25 In Process 16:06 Code Status CODE 01/17/25 Transmitted 16:06 Ondansetron Hcl PHA 01/17/25 Logged (Zofran) 16:15 Complete Blood Count LAB 01/18/25 Verified 04:00 Comprehensive LAB 01/18/25 Verified Metabolic Panel 04:00 Cardiac DIET 01/17/25 Transmitted Diet-2gna,Lofat,Lochol Dinner Acetaminophen Tablet PHA 01/17/25 Logged (Tylenol Tablet) 16:15 Sequential ANDREI 01/17/25 In Process Compression Device Nitroglycerin PHA 01/17/25 Logged Sublingual (Ntrostat 16:15 Stat Ekg For Chest ANDREI 01/17/25 In Process Pain 16:06 Notify Of Changes ANDREI 01/17/25 In Process From Base 16:06 Edger Feeder For ANDREI 01/17/25 In Process 24 Hours 16:06 Emergency Dysrhythmia ANDREI 01/17/25 In Process Protocol 16:06 Rhythm Strips Once ANDREI 01/17/25 In Process Every Shift 16:06 Oxygen By Nasal RT 01/17/25 Transmitted Cannula 16:06 Levetiracetam Tablet PHA 01/17/25 Logged (Keppra Tablet) 22:00 Pantoprazole PHA 01/18/25 Logged (Protonix) 10:00 Date of Service: January 17, 2025 Billing Provider: DARIEL LITTLEJOHN Common Visit Codes: 42817-ZIRODRY INP/OBS CARE (HIGH) DARIEL LITTLEJOHN January 17, 2025 16:23
[2025-01-17 16:46] VITALS: BP 132/77; PULSE 62; RESP 18; TEMP 97.9; O2SAT 100
[2025-01-17 17:00] VITALS: BP 132/77; PULSE 62; RESP 18; TEMP 97.9; O2SAT 100
[2025-01-17 21:07] VITALS: BP 131/79; PULSE 86; RESP 16; TEMP 98.1; O2SAT 86
[2025-01-17] MEDS: levETIRAcetam 500 MG TAB PO SCH (21:23)
[2025-01-17] MEDS: PIPERACILLIN-TAZO 4.5GM 100 ML IV ONE (23:09)
[2025-01-18] VITALS (8 sets, daily range): BP systolic 115–151; BP diastolic 48–94; PULSE 80–89; RESP 15–20; TEMP 98–98.6; O2SAT 97–99
[2025-01-18 05:15] LABS: Urine Bacteria None Seen /hpf (None Seen)
[2025-01-18 05:29] LABS: Urine Blood 3+ /uL (Negative); Urine Clarity Clear (Clear); Urine Color Yellow (Yellow); Urine Protein, UAD TRACE (Negative); Urine Specific Gravity 1.024 (1.001-1.035); Urine Squamous Epithelial Cell FEW /hpf (<5); Urine Urobilinogen Normal (Negative); Urine WBC < 1 /HPF (0-5); Urine pH 8.5 (5.0-9.0)
[2025-01-18 07:47] LABS: Basophils # (auto) 0 10 ^3/uL (0-0.2); Basophils % (auto) 0.3 % (0.0-2.0); Hemoglobin 11.3 g/dL (12.2-16.2); Monocytes # (auto) 0.9 10 ^3/uL (0-1.3); Red Blood Cells 4.27 10^6/uL (4.0-5.20)
[2025-01-18 07:50] LABS: Eosinophils # (auto) 0.1 10 ^3/uL (0-0.8); Eosinophils % (auto) 0.6 % (0.0-7.0); Hematocrit 34.4 % (36.0-46.0); Lymphocytes # (auto) 2.7 10 ^3/uL (0.4-5.4); Mean Corpuscular Hemoglobin 26.3 pg (28.0-32.0); Mean Corpuscular Hgb Conc. 32.8 g/dL (32.0-36.0); Mean Corpuscular Volume 80.4 fL (80.0-100.0); Monocytes % (auto) 6.7 % (0.0-12.0); Neutrophils # (auto) 9.3 10 ^3/uL (1.6-8.6); Neutrophils % (auto) 71.4 % (37.0-80.0); Nucleated Red Blood Cells % 0.1 %; Platelet Count (auto) 327 10^3/uL (140-450); Red Cell Distribution Width 16.4 % (11.8-14.3); White Blood Cell 13.1 10^3/uL (4.4-10.8)
[2025-01-18 07:52] LABS: Alanine Aminotransferase 13 U/L (7-40); Alkaline Phosphatase 68 U/L (46-116); Anion Gap 8 (5-15); Blood Urea Nitrogen 7 mg/dL (9-23); Calcium 9.3 mg/dL (8.7-10.4); Carbon Dioxide 22 mmol/L (20-31); Chloride 111 mmol/L (98-107); Glucose 104 mg/dL (74-106); Potassium 3.5 mmol/L (3.5-5.1); Sodium 141 mmol/L (136-145)
[2025-01-18 07:53] LABS: Total Protein 6.2 g/dL (5.7-8.2)
[2025-01-18 07:54] LABS: Aspartate Aminotransferase 12 U/L (13-40); Bilirubin, Total 0.5 mg/dL (0.2-1.0)
[2025-01-18] MEDS: PANTOPRAZOLE 40 MG/10 ML VIAL INJ IV SCH (09:09)
== END 2025-01-18 20:15 | disposition home or self-care (01) | DRG 392 ==
LOC: ER 07:58 → OVERFLOW 16:06 → EAST 01-18 00:39
DX: A09 Infectious gastroenteritis and colitis, unspecified (principal); Z68.42 Body mass index [BMI] 45.0-49.9, adult; F12.90 Cannabis use, unspecified, uncomplicated; E66.01 Morbid (severe) obesity due to excess calories; Z88.5 Allergy status to narcotic agent; Z83.3 Family history of diabetes mellitus
CPT/HCPCS: 36415; 74176; 80053; 80307; 80320; 81001; 81025; 85025; 96361; 96365; 96372; 96375; G0378; J2405; J2470; J2543; J3490

== ENCOUNTER 2025-02-09 21:41 | Emergency (ER) | payer SELFPAY ==
[~2025-02-09] VITALS: Ht 157.5 cm; Wt 129.7 kg
[~2025-02-09 21:41] MED LIST changes: +LEVE500T3 PO
[2025-02-09 23:12] LABS: Alanine Aminotransferase 31 U/L (7-40); Albumin 4.6 g/dL (3.2-4.8); Alkaline Phosphatase 81 U/L (46-116); Anion Gap 14 (5-15); BUN/Creatinine Ratio 7.6 (10.0-20.0); Bilirubin, Total 0.8 mg/dL (0.2-1.0); Calcium 9.4 mg/dL (8.7-10.4); Glucose 85 mg/dL (74-106); Sodium 138 mmol/L (136-145); Total Protein 7.4 g/dL (5.7-8.2)
[2025-02-09 23:15] LABS: Aspartate Aminotransferase 56 U/L (<34); Blood Urea Nitrogen 7 mg/dL (9-23); Carbon Dioxide 17 mmol/L (20-31); Chloride 107 mmol/L (98-107); Potassium 3.4 mmol/L (3.5-5.1)
[2025-02-09] MEDS: SODIUM CHLORIDE 0.9% 1,000 ML IV ONE (23:51)
[2025-02-09] MEDS: levETIRAcetam 1000 mg/100ml 100 ML IV ONE (23:51)
[2025-02-10 00:09] LABS: Basophils # (auto) 0.1 10 ^3/uL (0-0.2); Eosinophils # (auto) 0 10 ^3/uL (0-0.8)
[2025-02-10 00:10] LABS: Basophils % (auto) 0.4 % (0.0-2.0); Eosinophils % (auto) 0.3 % (0.0-7.0); Hematocrit 35.7 % (36.0-46.0); Lymphocytes # (auto) 1.6 10 ^3/uL (0.4-5.4); Lymphocytes % (auto) 9.7 % (10.0-50.0); Mean Corpuscular Hemoglobin 26.4 pg (28.0-32.0); Mean Corpuscular Hgb Conc. 33.6 g/dL (32.0-36.0); Mean Corpuscular Volume 78.7 fL (80.0-100.0); Monocytes % (auto) 6.1 % (0.0-12.0); Neutrophils # (auto) 14.2 10 ^3/uL (1.6-8.6); Neutrophils % (auto) 83.5 % (37.0-80.0); Platelet Count (auto) 336 10^3/uL (140-450); Red Blood Cells 4.54 10^6/uL (4.0-5.20); Red Cell Distribution Width 16.4 % (11.8-14.3); White Blood Cell 16.9 10^3/uL (4.4-10.8)
[2025-02-10] MEDS: levETIRAcetam 500 MG TAB PO ONE (00:17)
[2025-02-10 01:15] VITALS: TEMP 98
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
[2025-02-10 01:36] LABS: Urine Bacteria FEW /hpf (None Seen); Urine Blood Negative /uL (Negative); Urine Clarity Turbid (Clear); Urine Color Colorless (Yellow); Urine Protein, UAD Negative (Negative); Urine Specific Gravity 1.004 (1.001-1.035); Urine Squamous Epithelial Cell FEW /hpf (<5); Urine Urobilinogen Normal (Negative); Urine WBC 1 /HPF (0-5); Urine pH 5.5 (5.0-9.0)
[2025-02-10 01:56] LABS: Amphetamine Screen, Urine Pos (NEGATIVE); Barbiturate Scree,Urine Neg (NEGATIVE); Opiate Scree,Urine Neg (NEGATIVE); Phencyclidine Screen, Urine Neg (NEGATIVE)
[2025-02-10 01:57] LABS: Benzodiazephine Screen, Urine Neg (NEGATIVE); Cannabinoid Screen, Urine Pos (NEGATIVE); Cocaine Screen, Urine Neg (NEGATIVE)
[2025-02-10] MEDS: POTASSIUM CHL 20 Meq TABLET PO ONE (02:21)
[2025-02-10 02:27] VITALS: BP 139/90; PULSE 89; RESP 14; O2SAT 97
== END 2025-02-10 02:27 | disposition home or self-care (01) ==
LOC: ER 21:41
DX: R56.9 Unspecified convulsions (principal); D72.829 Elevated white blood cell count, unspecified; F12.90 Cannabis use, unspecified, uncomplicated; Z88.5 Allergy status to narcotic agent; Z79.899 Other long term (current) drug therapy
CPT/HCPCS: 36415; 80053; 80307; 81001; 81025; 82542; 85025

== ENCOUNTER 2025-04-24 12:26 | Emergency (ER) | payer SELFPAY ==
[~2025-04-24] VITALS: Ht 160 cm; Wt 123.7 kg
--- NOTE | 2025-04-24 13:19 | ED.PDOC ---
GI ASSESSMENT HPI Comments This is a 30 year old female presenting to the ED with chief complaint of abdominal pain. Patient reports that she has been experiencing severe diffuse abdominal pain with associated nausea, vomiting, and generalized weakness since 6am this morning. Patient relays that she has had similar pain in the past. Patient denies any diarrhea, chest pain, fever, chills, dysuria, or hematemesis. Chief Complaint: Abdominal Pain Time Seen by MD: 13:18 Reviewed Notes: Nurses Notes, Medications, Allergies Allergies: Coded Allergies: Codeine (Verified Allergy, Unknown, 12/17/24) Home Meds Active Scripts Nitrofurantoin Monohydrate Mac (Macrobid) 100 Mg Cap, 100 MG PO BID for 7 Days, #14 CAP Prov:CLIFTON CARTER 12/26/24 Prochlorperazine Maleate (Compazine) 10 Mg Tb, 1 TAB PO Q6HR PRN, #30 TAB 3 Refills Prov:CLIFTON CARTER 12/26/24 Reported Medications Levetiracetam (Levetiracetam) 500 Mg Tab, 2 TAB PO BID 01/17/25 Information Source: Patient Mode of Arrival: Ambulatory Timing: Days Duration: Since onset Prehospital treatment: None Quality: Sharp Vomitus: Watery Stool: Normal Severity: Moderate Recent: None Recent Hx of: None Pain Location: Diffuse Modifying Factors: Nothing Associated sign and symptoms: Nausea, Vomiting, Abdominal Pain Past Medical History PAST MEDICAL HISTORY: Seizures Surgical History: Denies all surgeries PLAN CONSULTANT History: Denies all PLAN CONSULTANT Hx Family History Family History: Unknown Social History Smoker: Non-Smoker Alcohol: Denies ETOH Use Drugs: Marijuana Lives In: Home Constitutional: reports: weakness; denies: chills, diaphoresis, fatigue, fever, malaise, sweats, others EENTM: denies: blurred vision, double vision, ear bleeding, ear discharge, ear drainage, ear pain, ear ringing, eye pain, eye redness, hearing loss, mouth pain, mouth swelling, nasal discharge, nose bleeding, nose congestion, nose pain, photophobia, tearing, throat pain, throat swelling, voice changes, others Respiratory: denies: cough, hemoptysis, orthopnea, SOB at rest, shortness of breath, SOB with excertion, stridor, wheezing, others Cardiovascular: denies: chest pain, dizzy spells, diaphoresis, Dyspnea on exertion, edema, irregular heart beat, left arm pain, lightheadedness, palpitations, PND, syncope, others Gastrointestinal: reports: abdominal pain, nausea, vomiting; denies: abdomen distended, blood streaked bowels, constipated, diarrhea, dysphagia, difficulty swallowing, hematemesis, melena, poor appetite, poor fluid intake, rectal bleeding, rectal pain, others Genitourinary: denies: abnormal vagina bleeding, burning, dyspareunia, dysuria, flank pain, frequency, hematuria, incontinence, pain, , vagina d ischarge, urgency, others Neurological: denies: dizziness, fainting, headache, left sided numbness, left sided weakness, numbness, paresthesia, pre-existing deficit, right sided numbness, right sided weakness, seizure, speech problems, tingling, tremors, weakness, others Musculoskeletal: denies: back pain, gout, joint pain, joint swelling, muscle pain, muscle stiffness, neck pain, others Integumetry: denies: bruises, change in color, change in hair/nails, dryness, laceration, lesions, lumps, rash, wounds, others Allergic/Immunocompromised: denies: Difficulty Healing, Frequent Infections, Hives, Itching, others Hematologic/Lymphatic: denies: anemia, blood clots, easy bleeding, easy bruising, swollen glands, others Endocrine: denies: excessive hunger, excessive sweating, excessive thirst, excessive urination, flushing, intolerance to cold, intolerance to heat, unexplained weight gain, unexplained weight loss, others Psychiatric: denies: anxiety, bipolar disorder, depression, hopeless, panic disorder, schizophrenia, sleepless, suicidal, others Unable to Obtain due to: Dementia Physical Exam General Appearance: No Apparent Distress, Obese HEENT: Normal ENT Inspection, Pharynx Normal, TMs Normal Neck: Full Range of Motion, Non-Tender, Normal, Normal Inspection Respiratory: Chest Non-Tender, Lungs Clear, No Accessory Muscle Use, No Respiratory Distress, Normal Breath Sounds Cardiovascular: No Edema, No JVD, No Murmur, No Gallop, Normal Peripheral Pulses, Regular Rate/Rhythm Breast Exam: Deferred Gastrointestinal: No Organomegaly, No Pulsatile Mass, Normal Bowel Sounds, Soft, Tenderness (Diffuse abdominal tenderness.) Genitalia: Deferred Pelvic: Deferred Rectal: Deferred Extremities: No calf tenderness, Normal capillary refill, Normal inspection, Normal range of motion, Non-tender, No pedal edema Musculoskeletal : Apperance: Normal Neurologic: Alert, field sales associate II-XII nml as Tested, No Motor Deficits, Normal Affect, Normal Mood, No Sensory Deficits Cerebellar Function: Normal Reflexes: Normal Skin: Dry, Normal Color, Warm Lymphatic: No Adenopathy Was a procedure done? Was a procedure done?: No GI differential Dx Differential Diagnosis: Appendicitis, Gastroenteritis, GI hemorrhage, Hernia, Hepatitis X-Ray, Labs, Meds, VS Vital Signs Date Time Temp Pulse Resp B/P (MAP) Pulse Ox O2 Delivery O2 Flow Rate FiO2 04/24/25 15:08 98.1 52 18 147/72 (97) 100 98.1 04/24/25 14:49 53 18 147/72 04/24/25 12:27 97.7 60 20 166/96 100 97.7 Lab Test 04/24/25 14:45 04/24/25 13:11 Range/Units Urine Color Yellow Yellow Urine Clarity Clear Clear Urine pH 8.5 5.0-9.0 Urine Specific [place] 1.026 1.001-1.035 Urine Protein 1+ H Negative Urine Ketones 2+ H Negative Urine Blood Negative Negative /uL Urine Nitrite Negative Negative Urine Bilirubin Negative Negative Urine Urobilinogen Normal Negative mg/dL Urine Leukocyte Esterase Negative Negative /uL Urine RBC 1 0 - 4 /hpf Urine Microscopic WBC 1 0-5 /HPF Urine Squamous Epithelial Cells Few <5 /hpf Urine Bacteria None seen None Seen /hpf Urine Glucose Normal Normal mg/dL Urine Test Negative Negative White Blood Count 12.8 H 4.4-10.8 10^3/uL Red Blood Count 4.75 4.0-5.20 10^6/uL Hemoglobin 12.5 12.2-16.2 g/dL Hematocrit 38.2 36.0-46.0 % Mean Corpuscular Volume 80.4 80.0-100.0 fL Mean Corpuscular Hemoglobin 26.3 L 28.0-32.0 pg Mean Corpuscular Hemoglobin Concent 32.7 32.0-36.0 g/dL Red Cell Distribution Width 16.2 H 11.8-14.3 % Platelet Count 368 140-450 10^3/uL Mean Platelet Volume 8.4 6.9-10.8 fL Neutrophils (%) (Auto) 86.5 H 37.0-80.0 % Lymphocytes (%) (Auto) 10.6 10.0-50.0 % Monocytes (%) (Auto) 2.6 0.0-12.0 % Eosinophils (%) (Auto) 0.1 0.0-7.0 % Basophils (%) (Auto) 0.2 0.0-2.0 % Neutrophils # (Auto) 11.1 H 1.6-8.6 10 ^3/uL Lymphocytes # (Auto) 1.4 0.4-5.4 10 ^3/uL Monocytes # (Auto) 0.3 0-1.3 10 ^3/uL Eosinophils # (Auto) 0 0-0.8 10 ^3/uL Basophils # (Auto) 0 0-0.2 10 ^3/uL Nucleated Red Blood Cells 0.1 % Sodium Level 140 136-145 mmol/L Potassium Level 3.8 3.5-5.1 mmol/L Chloride Level 110 H 98-107 mmol/L Carbon Dioxide Level 20 20-31 mmol/L Anion Gap 10 5-15 Blood Urea Nitrogen 6 L 9-23 mg/dL Creatinine 0.80 0.550-1.02 mg/dL Glomerular Filtration Rate Calc 102 >90 mL/min BUN/Creatinine Ratio 7.5 L 10.0-20.0 Serum Glucose 128 H 74-106 mg/dL Calcium Level 9.5 8.7-10.4 mg/dL Current Medications Medications (Trade) Dose Ordered Sig/Leobardo Route Start Time Stop Time Status Last Admin Sodium Chloride 1,000 ml @ 1,000 mls/hr Q1H ONCE IV 04/24/25 13:00 04/24/25 13:59 DC 04/24/25 14:49 Ondansetron HCl (Zofran) 4 mg ONCE ONCE IV 04/24/25 13:00 04/24/25 13:14 DC 04/24/25 14:45 Morphine Sulfate 4 mg ONCE ONCE IV 04/24/25 13:00 04/24/25 13:29 DC 04/24/25 14:49 Time of 1ST Reevaluation: 14:18 Reevaluation 1ST: Unchanged Patient Education/Counseling: Diagnosis, Treatment Family Education/Counseling: No Family Present SEPSIS Sepsis Screen Date sepsis recognized/suspect: Apr 24, 2025 Time Sepsis recognized/suspect: 1228 Recent Procedure: No On Antibiotic Therapy: No Respiratory Rate >20: No Heart Rate >90: No Temp<36 C (96.8 F) or >38.3 C: No SBP <90 or MAP <65 mmHG: No New Acute Mental Status Change: No Is the patient on CPAP, BIPAP,: No Vital Signs Date Time Temp Pulse Resp B/P (MAP) Pulse Ox O2 Delivery O2 Flow Rate FiO2 04/24/25 15:08 98.1 52 18 147/72 (97) 100 98.1 04/24/25 14:49 53 18 147/72 04/24/25 12:27 97.7 60 20 166/96 100 97.7 Laboratory Tests Test 04/24/25 13:11 White Blood Count 12.8 10^3/uL (4.4-10.8) H Medications Medications Dose Ordered Sig/Leobardo Route Start Time Stop Time Status Last Admin Dose Admin Morphine Sulfate 4 mg ONCE ONCE IV 04/24/25 13:00 04/24/25 13:29 DC 04/24/25 14:49 Ondansetron HCl 4 mg ONCE ONCE IV 04/24/25 13:00 04/24/25 13:14 DC 04/24/25 14:45 Sodium Chloride 1,000 ml @ 1,000 mls/hr Q1H ONCE IV 04/24/25 13:00 04/24/25 13:59 DC 04/24/25 14:49 Departure 1 Departure Time of Disposition: 19:41 (Patient presenting with severe abdominal pain however patient eloped prior to workup completion) Impression: Primary Impression: Intractable abdominal pain Disposition: LEFT AWOL/ELOPED Condition: Serious Critical Care Note Critical Care Time?: No Stability Stability form required: No Heart Score Heart Score: Heart Score Response (Comments) Value History N/A 0 EKG N/A 0 Age N/A 0 Risk Factors N/A 0 Troponin N/A 0 Total 0 I personally scribed for MYLA JANSEN MD ([email or web address]) on 04/24/25 at 13:19. Electronically submitted by Jean Marie Wolff ([email or web address]). MYLA JANSEN MD Apr 24, 2025 13:19
[2025-04-24 13:41] LABS: Hemoglobin 12.5 g/dL (12.2-16.2); Mean Corpuscular Hemoglobin 26.3 pg (28.0-32.0)
[2025-04-24 13:43] LABS: Hematocrit 38.2 % (36.0-46.0); Mean Corpuscular Volume 80.4 fL (80.0-100.0); Nucleated Red Blood Cells % 0.1 %
[2025-04-24 13:52] LABS: Potassium 3.8 mmol/L (3.5-5.1); Sodium 140 mmol/L (136-145)
[2025-04-24 13:53] LABS: Anion Gap 10 (5-15); Calcium 9.5 mg/dL (8.7-10.4); Carbon Dioxide 20 mmol/L (20-31)
[2025-04-24 13:54] LABS: Chloride 110 mmol/L (98-107)
[2025-04-24 13:58] LABS: BUN/Creatinine Ratio 7.5 (10.0-20.0)
[2025-04-24 13:59] LABS: Blood Urea Nitrogen 6 mg/dL (9-23); Glucose 128 mg/dL (74-106)
[2025-04-24] MEDS: ONDANSETRON HCL 4 MG/2 ML VIAL IV ONE (14:45)
[2025-04-24] MEDS: MORPHINE SULFATE 4 MG/ML SYR/VIAL IV ONE (14:49)
[2025-04-24] MEDS: SODIUM CHLORIDE 0.9% 1,000 ML IV ONE (14:49)
[2025-04-24 15:08] VITALS: BP 147/72; PULSE 52; RESP 18; TEMP 98.1; O2SAT 100
[2025-04-24 15:21] LABS: Urine Protein, UAD 1+ (Negative)
== END 2025-04-24 16:04 | disposition left against medical advice (07) ==
LOC: ER 12:26
DX: R10.84 Generalized abdominal pain (principal); Z88.5 Allergy status to narcotic agent; Z79.899 Other long term (current) drug therapy
CPT/HCPCS: 36415; 80048; 81001; 81025; 85025; 96361; 96374; 96375; 99284; J2270; J2405; J7030

== ENCOUNTER 2025-04-25 23:18 | Emergency (ER) | payer SELFPAY ==
[~2025-04-25] VITALS: Ht 160 cm; Wt 125.5 kg
--- NOTE | 2025-04-25 23:39 | ED.PDOC ---
GI ASSESSMENT HPI Comments 30 year old female presenting to the ED with chief complaint of abdominal pain. Patient reports that she has been experiencing severe diffuse abdominal pain with associated nausea, vomiting, and generalized weakness since 6am yesterday. Was seen here yesterday discharge improved. Patient relays that she has had similar pain in the past and she is scheduled to see a GI doctor. 45 minutes prior to arrival, abdominal pain again with the episodes of nausea and vomiting prompting her to go back to the ER Chief Complaint: Nausea/Vomiting Time Seen by MD: 23:37 Reviewed Notes: Nurses Notes Allergies: Coded Allergies: Codeine (Verified Allergy, Unknown, 12/17/24) Home Meds Active Scripts Metoclopramide Hcl (Reglan) 10 Mg Tab, 10 MG PO Q6HP PRN, #30 TAB Prov:CHELSEA LAZAR MD 04/26/25 Ondansetron HCl (Ondansetron Hydrochloride) 8 Mg Tab, 8 MG PO Q6HP PRN, #30 TAB Prov:CHELSEA LAZAR MD 04/26/25 Nitrofurantoin Monohydrate Mac (Macrobid) 100 Mg Cap, 100 MG PO BID for 7 Days, #14 CAP Prov:CLIFTON CARTER 12/26/24 Prochlorperazine Maleate (Compazine) 10 Mg Tb, 1 TAB PO Q6HR PRN, #30 TAB 3 Refills Prov:CLIFTON CARTER 12/26/24 Reported Medications Levetiracetam (Levetiracetam) 500 Mg Tab, 2 TAB PO BID 01/17/25 Information Source: Patient Mode of Arrival: Ambulatory Duration: Intermittent Prehospital treatment: None Quality: Aching Vomitus: Watery Stool: Normal Severity: Moderate Recent: None Recent Hx of: None Pain Location: Diffuse Associated sign and symptoms: Nausea, Vomiting, Abdominal Pain Past Medical History PAST MEDICAL HISTORY: Seizures Surgical History: Denies all surgeries BIOCHEMIST History: Denies all BIOCHEMIST Hx Family History Family History: Unknown Social History Smoker: Non-Smoker Alcohol: Denies ETOH Use Drugs: Marijuana Lives In: Home Constitutional: reports: weakness; denies: chills, diaphoresis, fatigue, fever, malaise, sweats, others EENTM: denies: blurred vision, double vision, ear bleeding, ear discharge, ear drainage, ear pain, ear ringing, eye pain, eye redness, hearing loss, mouth pain, mouth swelling, nasal discharge, nose bleeding, nose congestion, nose pain, photophobia, tearing, throat pain, throat swelling, voice changes, others Respiratory: denies: cough, hemoptysis, orthopnea, SOB at rest, shortness of breath, SOB with excertion, stridor, wheezing, others Cardiovascular: denies: chest pain, dizzy spells, diaphoresis, Dyspnea on exertion, edema, irregular heart beat, left arm pain, lightheadedness, palpitations, PND, syncope, others Gastrointestinal: reports: abdominal pain, nausea, vomiting; denies: abdomen distended, blood streaked bowels, constipated, diarrhea, dysphagia, difficulty swallowing, hematemesis, melena, poor appetite, poor fluid intake, rectal bleeding, rectal pain, others Genitourinary: denies: abnormal vagina bleeding, burning, dyspareunia, dysuria, flank pain, frequency, hematuria, incontinence, pain, , vagina discharge, urgency, others Neurological: denies: dizziness, fainting, headache, left sided numbness, left sided weakness, numbness, paresthesia, pre-existing deficit, right sided numbness, right sided weakness, seizure, speech problems, tingling, tremors, weakness, others Musculoskeletal: denies: back pain, gout, joint pain, joint swelling, muscle pain, muscle stiffness, neck pain, others Integumetry: denies: bruises, change in color, change in hair/nails, dryness, laceration, lesions, lumps, rash, wounds, others Allergic/Immunocompromised: denies: Difficulty Healing, Frequent Infections, Hives, Itching, others Hematologic/Lymphatic: denies: anemia, blood clots, easy bleeding, easy bruising, swollen glands, others Endocrine: denies: excessive hunger, excessive sweating, excessive thirst, excessive urination, flushing, intolerance to cold, intolerance to heat, unexplained weight gain, unexplained weight loss, others Psychiatric: denies: anxiety, bipolar disorder, depression, hopeless, panic disorder, schizophrenia, sleepless, suicidal, others Physical Exam General Appearance: No Apparent Distress, Normal HEENT: Normal ENT Inspection, Pharynx Normal, TMs Normal Neck: Full Range of Motion, Non-Tender, Normal, Normal Inspection Respiratory: Chest Non-Tender, Lungs Clear, No Accessory Muscle Use, No Respiratory Distress, Normal Breath Sounds Cardiovascular: No Edema, No JVD, No Murmur, No Gallop, Normal Peripheral Pulses, Regular Rate/Rhythm Breast Exam: Deferred Gastrointestinal: No Organomegaly, Non Tender, No Pulsatile Mass, Normal Bowel Sounds, Soft Genitalia: Deferred Pelvic: Deferred Rectal: Deferred Extremities: No calf tenderness, Normal capillary refill, Normal inspection, Normal range of motion, Non-tender, No pedal edema Musculoskeletal : Apperance: Normal Neurologic: Alert, plate printer II-XII nml as Tested, No Motor Deficits, Normal Affect, Normal Mood, No Sensory Deficits Cerebellar Function: Normal Reflexes: Normal Skin: Dry, Normal Color, Warm Lymphatic: No Adenopathy Was a procedure done? Was a procedure done?: No GI differential Dx Differential Diagnosis: Diverticular disease, Gastritis/PUD, Gastroenteritis, UTI, Urolithiasis X-Ray, Labs, Meds, VS Vital Signs Date Time Temp Pulse Resp B/P (MAP) Pulse Ox O2 Delivery O2 Flow Rate FiO2 04/26/25 01:43 65 18 148/58 04/26/25 01:38 97.6 65 24 148/58 (88) 100 97.6 04/25/25 23:20 97.2 60 16 134/66 98 97.2 Lab Test 04/25/25 23:48 04/25/25 23:37 Range/Units White Blood Count 14.9 H 4.4-10.8 10^3/uL Red Blood Count 4.60 4.0-5.20 10^6/uL Hemoglobin 12.2 12.2-16.2 g/dL Hematocrit 37.3 36.0-46.0 % Mean Corpuscular Volume 81.1 80.0-100.0 fL Mean Corpuscular Hemoglobin 26.5 L 28.0-32.0 pg Mean Corpuscular Hemoglobin Concent 32.7 32.0-36.0 g/dL Red Cell Distribution Width 16.4 H 11.8-14.3 % Platelet Count 363 140-450 10^3/uL Mean Platelet Volume 8.0 6.9-10.8 fL Neutrophils (%) (Auto) 62.4 37.0-80.0 % Lymphocytes (%) (Auto) 29.6 10.0-50.0 % Monocytes (%) (Auto) 6.3 0.0-12.0 % Eosinophils (%) (Auto) 1.4 0.0-7.0 % Basophils (%) (Auto) 0.3 0.0-2.0 % Neutrophils # (Auto) 9.3 H 1.6-8.6 10 ^3/uL Lymphocytes # (Auto) 4.4 0.4-5.4 10 ^3/uL Monocytes # (Auto) 0.9 0-1.3 10 ^3/uL Eosinophils # (Auto) 0.2 0-0.8 10 ^3/uL Basophils # (Auto) 0 0-0.2 10 ^3/uL Nucleated Red Blood Cells 0.1 % Sodium Level 141 136-145 mmol/L Potassium Level 3.4 L 3.5-5.1 mmol/L Chloride Level 108 H 98-107 mmol/L Carbon Dioxide Level 21 20-31 mmol/L Anion Gap 12 5-15 Blood Urea Nitrogen < 5 L 9-23 mg/dL Creatinine 0.90 0.550-1.02 mg/dL Glomerular Filtration Rate Calc 88 >90 mL/min BUN/Creatinine Ratio 5.6 L 10.0-20.0 Serum Glucose 98 74-106 mg/dL Calcium Level 9.1 8.7-10.4 mg/dL Total Bilirubin 0.3 0.2-1.0 mg/dL Aspartate Amino Transferase (AST) 17 13-40 U/L Alanine Aminotransferase (ALT) 17 7-40 U/L Alkaline Phosphatase 73 46-116 U/L Total Protein 6.8 5.7-8.2 g/dL Albumin 4.3 3.2-4.8 g/dL Lipase 32 12-53 U/L Urine Color Yellow Yellow Urine Clarity Turbid H Clear Urine pH 6.0 5.0-9.0 Urine Specific [place] 1.024 1.001-1.035 Urine Protein Negative Negative Urine Ketones Negative Negative Urine Blood Negative Negative /uL Urine Nitrite Negative Negative Urine Bilirubin Negative Negative Urine Urobilinogen Normal Negative mg/dL Urine Leukocyte Esterase Trace Negative /uL Urine RBC <1 0 - 4 /hpf Urine Microscopic WBC 1 0-5 /HPF Urine Squamous Epithelial Cells Mod <5 /hpf Urine Bacteria Few H None Seen /hpf Urine Glucose Normal Normal mg/dL Urine Test Negative Negative Current Medications Medications (Trade) Dose Ordered Sig/Leobardo Route Start Time Stop Time Status Last Admin Ondansetron HCl (Zofran) 4 mg ONCE ONCE IV 04/25/25 23:45 04/25/25 23:46 DC 04/26/25 01:42 Morphine Sulfate 4 mg ONCE ONCE IV 04/25/25 23:45 04/25/25 23:46 DC 04/26/25 01:43 Time of 1ST Reevaluation: 23:38 Reevaluation 1ST: Unchanged Patient Education/Counseling: Diagnosis, Treatment Family Education/Counseling: Diagnosis, Treatment SEPSIS Sepsis Screen Date sepsis recognized/suspect: Apr 25, 2025 Time Sepsis recognized/suspect: 2319 Recent Procedure: No On Antibiotic Therapy: No Respiratory Rate >20: No Heart Rate >90: No Temp<36 C (96.8 F) or >38.3 C: No SBP <90 or MAP <65 mmHG: No New Acute Mental Status Change: No Is the patient on CPAP, BIPAP,: No Physician Orders Ct Ab Pel Wo Con-No Oral Or Iv (04/25/25 23:37) Vital Signs Date Time Temp Pulse Resp B/P (MAP) Pulse Ox O2 Delivery O2 Flow Rate FiO2 04/26/25 01:43 65 18 148/58 04/26/25 01:38 97.6 65 24 148/58 (88) 100 97.6 04/25/25 23:20 97.2 60 16 134/66 98 97.2 Laboratory Tests Test 04/25/25 23:48 White Blood Count 14.9 10^3/uL (4.4-10.8) H Medications Medications Dose Ordered Sig/Leobardo Route Start Time Stop Time Status Last Admin Dose Admin Morphine Sulfate 4 mg ONCE ONCE IV 04/25/25 23:45 04/25/25 23:46 DC 04/26/25 01:43 Ondansetron HCl 4 mg ONCE ONCE IV 04/25/25 23:45 04/25/25 23:46 DC 04/26/25 01:42 Departure 1 Departure Time of Disposition: 04:59 Impression: Primary Impression: Intractable abdominal pain Additional Impressions: Cannabinoid hyperemesis syndrome Nausea and vomiting Disposition: ADMITTED INPATIENT Condition: Guarded e-Prescriptions Metoclopramide Hcl (Reglan) 10 Mg Tab 10 MG PO Q6HP PRN, #30 TAB Prov: CHELSEA LAZAR MD 04/26/25 Ondansetron HCl (Ondansetron Hydrochloride) 8 Mg Tab 8 MG PO Q6HP PRN, #30 TAB Prov: CHELSEA LAZAR MD 04/26/25 Comments Patient with intractable vomiting. Lab and CT results reviewed. Patient is still feels nauseated on re-evaluation. Apparently she has not appointment with the GI as outpatient. We will offer admission for IV hydration and supportive care and further workup Critical Care Note Critical Care Time?: No Stability Stability form required: No Heart Score Heart Score: Heart Score Response (Comments) Value History N/A 0 EKG N/A 0 Age N/A 0 Risk Factors N/A 0 Troponin N/A 0 Total 0 I personally scribed for CHELSEA LAZAR MD ([email or web address]) on 04/25/25 at 23:39. Electronically submitted by Danilo Resendez ([email or web address]). I personally scribed for CHELSEA LAZAR MD ([email or web address]) on 04/26/25 at 04:58. Electronically submitted by Danilo Resendez ([email or web address]). CHELSEA LAZAR MD Apr 25, 2025 23:39
[2025-04-26 00:13] LABS: Hematocrit 37.3 % (36.0-46.0); Hemoglobin 12.2 g/dL (12.2-16.2); Mean Corpuscular Hemoglobin 26.5 pg (28.0-32.0); Mean Corpuscular Volume 81.1 fL (80.0-100.0); Nucleated Red Blood Cells % 0.1 %
[2025-04-26 00:29] LABS: Alanine Aminotransferase 17 U/L (7-40); Albumin 4.3 g/dL (3.2-4.8); Alkaline Phosphatase 73 U/L (46-116); Anion Gap 12 (5-15); Calcium 9.1 mg/dL (8.7-10.4); Carbon Dioxide 21 mmol/L (20-31); Glucose 98 mg/dL (74-106); Lipase 32 U/L (12-53); Sodium 141 mmol/L (136-145); Total Protein 6.8 g/dL (5.7-8.2)
[2025-04-26 00:46] LABS: BUN/Creatinine Ratio 5.6 (10.0-20.0); Bilirubin, Total 0.3 mg/dL (0.2-1.0); Blood Urea Nitrogen < 5 mg/dL (9-23); Chloride 108 mmol/L (98-107); Potassium 3.4 mmol/L (3.5-5.1)
[2025-04-26 00:49] LABS: Urine Protein, UAD Negative (Negative)
[2025-04-26 01:38] VITALS: TEMP 97.6; O2SAT 100
[2025-04-26] MEDS: ONDANSETRON HCL 4 MG/2 ML VIAL IV ONE (01:42)
[2025-04-26 01:43] VITALS: BP 148/58; PULSE 65; RESP 18
[2025-04-26] MEDS: MORPHINE SULFATE 4 MG/ML SYR/VIAL IV ONE (01:43)
[2025-04-26] MEDS: ONDANSETRON HCL 4 MG/2 ML VIAL IM ONE (02:00)
--- NOTE | 2025-04-26 04:05 | DVH ---
Exam: CT CT AB PEL WO CON-NO ORAL OR IV History: abd pain, vomiting Comparison Study: CT CT AB PEL WO CON-NO ORAL OR IV on DOS: 01/17/25 Technique: Multidetector spiral CT of the abdomen was performed from lung bases to pubic symphysis. I maging was performed without IV contrast. Axial, coronal and sagittal multiplanar reformats were obta ined from the axial data set by the technologist. Radiation Dose : 1. Abdomen/Pelvis: CTDIvol 25.55 mGy, DLP 1609.64 mGy*cm. Findings: Evaluation of solid organs is limited due to lack of intravenous contrast use. Lung Bases: No acute or significant lung base finding. Normal heart size. No pleural or pericardial effusion. Liver: The liver is enlarged, measuring 21.6 cm in craniocaudal dimension. No focal lesions. Gallbladder and Biliary Tree: Unremarkable Spleen: Unremarkable Pancreas: The pancreas is grossly normal in appearance. Adrenal Glands: Unremarkable Kidneys: Kidneys are grossly normal without calculi or hydronephrosis. Bladder: Grossly unremarkable for degree of distention. Bowel: Small hiatal hernia. The stomach is grossly normal in appearance. Small bowel and colon are no rmal in caliber and distribution. The appendix is normal. Ascites: Absent Lymphadenopathy: No mesenteric, retroperitoneal or periportal lymphadenopathy. Abdominal Wall and Mesentery: Unremarkable. Vasculature: The visualized abdominal aorta is normal in size and caliber. Evaluation of abdominal a nd pelvic vessels is limited due to lack of intravenous contrast. Pelvic Organs: Unremarkable. Intrauterine device. Musculoskeletal: No aggressive focal bony lesions, acute fractures or dislocation. IMPRESSION: 1. No acute abdominal or pelvic findings. 2. Hepatomegaly. Radiation optimization: All CT scans at this facility use at least one of these dose optimization lashonda hniques: automated exposure control mA and/or kV adjustment per patient size (includes targeted exam s where dose is matched to clinical indication) or iterative reconstruction.
[2025-04-26] MEDS ORDERED: METO-281 PO (04:27)
[2025-04-26] MEDS ORDERED: ONDA-180 PO (04:27)
[2025-04-26] MEDS: MORPHINE SULFATE INJ 2 MG/ml SYRG IM ONE (04:48)
[2025-04-26] MEDS: SODIUM CHLORIDE 0.9% 1,000 ML IVB ONE (04:48)
== END 2025-04-26 06:00 | disposition left against medical advice (07) ==
LOC: ER 23:18
DX: F12.90 Cannabis use, unspecified, uncomplicated (principal); R10.84 Generalized abdominal pain; R11.2 Nausea with vomiting, unspecified; Z88.5 Allergy status to narcotic agent; Z79.899 Other long term (current) drug therapy
CPT/HCPCS: 36415; 74176; 80053; 81001; 81025; 83690; 85025; 96374; 96375; 99285; J2270; J2405